=== PATIENT | female | born 1950 | race Caucasian/White ===

== ENCOUNTER 2020-06-10 17:17 | Inpatient (IN) | payer MEDICARE, OTHER ==
[~2020-06-10] VITALS: Ht 152.4 cm; Wt 93.7 kg
[2020-06-10 18:16] LABS: BASOPHIL 0 % (0-2); EOSINOPHIL 0 % (0-7); HCT 18.8 % (37.0-47.0); LYMPHOCYTE 54.8 % (15-48); MCH 33.9 pg (25.0-31.0); MCHC 31.9 g/dL (32.0-36.0); MCV 106.2 fL (78.0-100.0); MONOCYTE 4.3 % (0-12); MPV 9.4 fL (6.0-9.5); NEUTROPHIL 39.8 % (41-80); NRBC 374.2; RBC 1.77 M/uL (4.20-5.40)
[2020-06-10 18:33] LABS: ALBUMIN 2.6 g/dL (3.4-5.0); BILIRUBIN - TOTAL 2.8 mg/dL (0.2-1.0); BUN/CREAT RATIO (CALC) 24.1 RATIO; CREATININE 1.12 mg/dL (0.51-0.95); GLOBULIN (CALCULATION) 4.3 g/dL; POTASSIUM 4.4 mmol/L (3.5-5.1); TOTAL PROTEIN 6.9 g/dL (6.4-8.2)
[2020-06-10 18:38] LABS: WBC 0.9 K/uL (4.0-10.5)
[2020-06-10 18:40] LABS: LACTIC ACID 4.9 mmol/L (0.4-1.9)
[2020-06-10 18:43] LABS: PLT 34 K/uL (150-400)
[2020-06-10 18:53] LABS: RETICULOCYTE COUNT 2.2 % (1.0-2.0)
[2020-06-10 18:56] LABS: IRON % SATURATION 67.5 %SAT (20-50)
[2020-06-10 18:56] LABS: BILIRUBIN 3+ mg/dL (NEGATIVE); BLOOD TRACE-INTACT Ery/uL (NEGATIVE); CLARITY CLEAR (CLEAR); COLOR YELLOW (YELLOW); GLUCOSE (U) TRACE mg/dL (NORMAL); LEUKOCYTES TRACE Leu/uL (NEGATIVE); NITRITE POSITIVE (NEGATIVE); PROTEIN 1+ mg/dL (NEGATIVE); SPECIFIC GRAVITY >=1.030 (1.001-1.030); UROBILINOGEN >=8.0 mg/dL (0.2-1.0); pH 5.5 (5.0-9.0)
[2020-06-10 19:02] LABS: CORONAVIRUS 2019 SARS-COV-2 NEGATIVE (NEGATIVE); INFLUENZA A NAA NEGATIVE (NEGATIVE)
[2020-06-10 19:05] LABS: AMORPHOUS URATES CRYSTALS TRACE; BACTERIA 2+; MUCOUS MODERATE
[2020-06-10 22:17] LABS: INR 1.29 (0.9-1.2); PROTHROMBIN TIME 15.3 SECONDS (11.4-13.6)
[2020-06-10 22:18] LABS: PTT 33.7 SECONDS (22.2-34.7)
[2020-06-11] MEDS ORDERED: ZESTRIL2.5 MG PO (04:44)
[2020-06-11] MEDS ORDERED: BUPROPION XL300 MG PO (04:45)
[2020-06-11 08:32] LABS: BASOPHIL 1.4 % (0-2); EOSINOPHIL 0 % (0-7); HCT 23.9 % (37.0-47.0); MCH 32.8 pg (25.0-31.0); MCHC 34.7 g/dL (32.0-36.0); MCV 94.5 fL (78.0-100.0); MONOCYTE 7.2 % (0-12); NEUTROPHIL 20.2 % (41-80); NRBC 67.6; RBC 2.53 M/uL (4.20-5.40); RDW 19.9 % (11.5-14.0)
[2020-06-11 08:44] LABS: HGB 8.3 g/dl (12.5-16.0); PLT 23 K/uL (150-400); WBC 1.4 K/uL (4.0-10.5)
[2020-06-11 08:45] LABS: MPV 12.3 fL (6.0-9.5)
[2020-06-11 08:56] LABS: IRON % SATURATION 94.4 %SAT (20-50)
[2020-06-11 09:05] LABS: BLAST 10; ELLIPTOCYTES (OVALOCYTES) 2+; LYMPHOCYTE(M) 80 % (15-48); NEUTROPHILS(M) 10 % (41-80); TOTAL CELL COUNT 10
[2020-06-11 09:06] LABS: ECHINOCYTES (BURR CELLS) 2+
[2020-06-11 09:07] LABS: ANISOCYTOSIS MODERATE; DACRYOCYTES (TEAR DROP CELLS) 2+; PLATELET ESTIMATE DECREASED; POIKILOCYTOSIS MODERATE
[2020-06-11 09:09] LABS: PLATELET MORPHOLOGY NORMAL
[2020-06-11 09:19] LABS: ALBUMIN 2.3 g/dL (3.4-5.0); BUN/CREAT RATIO (CALC) 24.2 RATIO; CREATININE 0.95 mg/dL (0.51-0.95); FOLIC ACID (SERUM) 6.6 ng/mL (8.6-58.9); FT4 (FREE T4) 1.2 ng/dL (0.76-1.46); GLOBULIN (CALCULATION) 3.6 g/dL; MAGNESIUM 2.1 mg/dL (1.8-2.4); PHOSPHORUS 3.2 mg/dL (2.6-4.7); POTASSIUM 3.6 mmol/L (3.5-5.1); TOTAL PROTEIN 5.9 g/dL (6.4-8.2)
[2020-06-12 06:10] LABS: INR 1.32 (0.9-1.2); PROTHROMBIN TIME 15.6 SECONDS (11.4-13.6); PTT 37.6 SECONDS (22.2-34.7)
[2020-06-12 06:19] LABS: CREATININE 0.75 mg/dL (0.51-0.95); POTASSIUM 3.4 mmol/L (3.5-5.1)
[2020-06-12 06:20] LABS: BASOPHIL 0 % (0-2); EOSINOPHIL 0 % (0-7); HCT 21.9 % (37.0-47.0); HGB 7.3 g/dl (12.5-16.0); LYMPHOCYTE 81.1 % (15-48); MCH 31.7 pg (25.0-31.0); MCHC 33.3 g/dL (32.0-36.0); MCV 95.2 fL (78.0-100.0); MONOCYTE 5.6 % (0-12); NEUTROPHIL 12.2 % (41-80); RDW 19.9 % (11.5-14.0)
[2020-06-12 07:42] LABS: PLT 15 K/uL (150-400); WBC 0.9 K/uL (4.0-10.5)
[2020-06-12 07:55] LABS: LYMPHOCYTE(M) 85 % (15-48); NEUTROPHILS(M) 15 % (41-80); NRBC 60; TOTAL CELL COUNT 20
[2020-06-12 07:56] LABS: PLATELET ESTIMATE DECREASED
[2020-06-12 07:59] LABS: ANISOCYTOSIS SLIGHT; PLATELET MORPHOLOGY NORMAL
[2020-06-12 08:00] LABS: DACRYOCYTES (TEAR DROP CELLS) 1+; ELLIPTOCYTES (OVALOCYTES) 1+; POIKILOCYTOSIS MODERATE
[2020-06-12 08:01] LABS: ACANTHOCYTES (THORN CELLS) RARE
[2020-06-13 06:13] LABS: BASOPHIL 0 % (0-2); EOSINOPHIL 0 % (0-7); HCT 20.8 % (37.0-47.0); HGB 7.2 g/dl (12.5-16.0); LYMPHOCYTE 85.2 % (15-48); MCH 32.7 pg (25.0-31.0); MCHC 34.6 g/dL (32.0-36.0); MCV 94.5 fL (78.0-100.0); MONOCYTE 3.7 % (0-12); NEUTROPHIL 9.9 % (41-80); NRBC 59.3; RDW 19.5 % (11.5-14.0)
[2020-06-13 06:31] LABS: INR 1.19 (0.9-1.2); PROTHROMBIN TIME 14.3 SECONDS (11.4-13.6)
[2020-06-13 06:37] LABS: PLT 12 K/uL (150-400); WBC 0.8 K/uL (4.0-10.5)
[2020-06-13 07:58] LABS: ALBUMIN 2.2 g/dL (3.4-5.0); CREATININE 0.8 mg/dL (0.51-0.95); GLOBULIN (CALCULATION) 3.2 g/dL; POTASSIUM 3.1 mmol/L (3.5-5.1); TOTAL PROTEIN 5.4 g/dL (6.4-8.2)
[2020-06-14 06:42] LABS: BASOPHIL 0 % (0-2); EOSINOPHIL 0 % (0-7); HGB 8.4 g/dl (12.5-16.0); MCH 31.7 pg (25.0-31.0); MCHC 33.6 g/dL (32.0-36.0); MCV 94.3 fL (78.0-100.0); MONOCYTE 3.4 % (0-12); NEUTROPHIL 14.6 % (41-80); RBC 2.65 M/uL (4.20-5.40); RDW 18.1 % (11.5-14.0)
[2020-06-14 07:20] LABS: PLT 11 K/uL (150-400); WBC 0.6 K/uL (4.0-10.5)
[2020-06-15 06:25] LABS: BASOPHIL 0 % (0-2); EOSINOPHIL 0 % (0-7); HCT 23.9 % (37.0-47.0); HGB 8.1 g/dl (12.5-16.0); LYMPHOCYTE 87.2 % (15-48); MCH 31.8 pg (25.0-31.0); MCHC 33.9 g/dL (32.0-36.0); MCV 93.7 fL (78.0-100.0); MONOCYTE 2.6 % (0-12); NEUTROPHIL 10.2 % (41-80); NRBC 28.2; RBC 2.55 M/uL (4.20-5.40); RDW 17.8 % (11.5-14.0)
[2020-06-15 07:03] LABS: BUN/CREAT RATIO (CALC) 10.1 RATIO; CREATININE 0.79 mg/dL (0.51-0.95); POTASSIUM 3.5 mmol/L (3.5-5.1)
[2020-06-15 07:44] LABS: PLT 9 K/uL (150-400); WBC 0.8 K/uL (4.0-10.5)
[2020-06-15] MEDS ORDERED: LEVAQUIN500 MG PO ×2 (08:24→10:44)
[2020-06-15] MEDS ORDERED: DIFLUCAN 100MG100 MG PO ×2 (08:24→10:44)
[2020-07-04] MEDS ORDERED: ZYRTEC10 MG PO (10:28)
[2020-07-04] MEDS ORDERED: ALLOPURINOL300 MG PO (10:29)
[2020-07-07] MEDS ORDERED: ACETAMINOPHEN500 M1 PO (14:52)
== END 2020-06-15 16:05 | disposition home or self-care (01) | DRG 871 ==
LOC: FER 17:17 → FMS 22:17 → FICU 22:17 → FMS 06-12 09:11
PROVIDERS: Allergy & Immunology Allergy; Emergency Medicine; Nurse Practitioner; ADMIT Internal Medicine
PROC: 3E033XZ Introduction of Vasopressor into Peripheral Vein, Percutaneous Approach (ICD-10-PCS; principal; 2020-06-10)
DX: A41.9 Sepsis, unspecified organism (principal); R65.21 Severe sepsis with septic shock; J18.9 Pneumonia, unspecified organism; D61.818 Other pancytopenia; N39.0 Urinary tract infection, site not specified; Z20.822 Contact with and (suspected) exposure to COVID-19; F41.9 Anxiety disorder, unspecified; F32.9 Major depressive disorder, single episode, unspecified; I10 Essential (primary) hypertension; Z88.2 Allergy status to sulfonamides
CPT/HCPCS: 36415; 36430; 70450; 71275; 80048; 80053; 80202; 81001; 82150; 82550; 82607; 82728; 82746; 83540; 83550; 83605; 83615; 83735; 83874; 83880; 84100; 84145; 84439; 84443; 84484; 85025; 85384; 85610; 85730; 86850; 86900; 86901; 86922; 87040; 87088; 88305; 88341; 88342; 93005; 94010; 97110; 97116; 97162; 97166; 97530; 97530-GP; 97535; C9113; J0692; J1940; J1956; J2543; J2704; J3370; J7030; J7050; J7120; P9016; P9612; Q9967; U0002

== ENCOUNTER → 2020-07-07 | Day surgery (SDC) | payer MEDICARE, SELFPAY ==
[~2020-07-07] VITALS: Ht 152.4 cm; Wt 86.2 kg
[~2020-07-07] MED LIST: ACETAMINOPHEN500 M1 PO; ALLOPURINOL300 MG PO; BENADRYL12.5 MG/5 PO; BUPROPION XL300 MG PO; CEFDINIR300 MG PO; CLONAZEPAM0.5 MG PO; COMPAZINE10 MG PO; DIFLUCAN 100MG100 MG PO; DIFLUCAN150 MG PO; INVANZ 1GM1 GM/VIAL IM/IV; LEVAQUIN500 MG PO; LOMOTIL1 EACH PO; MEGACE40 MG PO; METRONIDAZOLE500 MG PO; MIRALAX17 GM PO; NORCO 5-325 TA1 EACH PO; NYSTATIN SUSP1 ML/ML PO; PREDNISOLO15 MG/5 ML PO; VENCLEXTA10 MG PO; ZESTRIL2.5 MG PO; ZYRTEC10 MG PO
[2020-07-07 10:02] LABS: HCT 29.4 % (37.0-47.0); MCH 32.1 pg (25.0-31.0); MCHC 34.4 g/dL (32.0-36.0); MCV 93.3 fL (78.0-100.0); MPV 9.8 fL (6.0-9.5); RBC 3.15 M/uL (4.20-5.40); RDW 16.6 % (11.5-14.0)
[2020-07-07 10:42] LABS: HGB 10.1 g/dl (12.5-16.0); WBC 0.8 K/uL (4.0-10.5)
== END | disposition home or self-care (01) ==
LOC: FAS 08:42
PROVIDERS: Student in an Organized Health Care Education/Training Program
DX: D46.9 Myelodysplastic syndrome, unspecified (principal); D61.818 Other pancytopenia; Z79.899 Other long term (current) drug therapy; Z88.2 Allergy status to sulfonamides
CPT/HCPCS: 36415; 71045; 76000; 86850; 86900; 86901; C1788; J0690; J1644; J2250; J2704; J7120

== ENCOUNTER 2020-08-13 17:37 | Inpatient (IN) | payer MEDICARE, SELFPAY, OTHER ==
[~2020-08-13 17:37] MED LIST changes: -BENADRYL12.5 MG/5 PO; -CEFDINIR300 MG PO; -CLONAZEPAM0.5 MG PO; -COMPAZINE10 MG PO; -DIFLUCAN150 MG PO; -INVANZ 1GM1 GM/VIAL IM/IV; -LOMOTIL1 EACH PO; -MEGACE40 MG PO; -METRONIDAZOLE500 MG PO; -MIRALAX17 GM PO; -NORCO 5-325 TA1 EACH PO; -NYSTATIN SUSP1 ML/ML PO; -PREDNISOLO15 MG/5 ML PO; -VENCLEXTA10 MG PO
[2020-08-13 19:01] LABS: BASOPHIL 0 % (0-2); EOSINOPHIL 0 % (0-7); HCT 14.6 % (37.0-47.0); LYMPHOCYTE 85.7 % (15-48); MCH 29.7 pg (25.0-31.0); MCHC 33.6 g/dL (32.0-36.0); MCV 88.5 fL (78.0-100.0); MONOCYTE 5.4 % (0-12); NRBC 3.6; RBC 1.65 M/uL (4.20-5.40); RDW 14.5 % (11.5-14.0)
[2020-08-13 19:16] LABS: ALBUMIN 2.3 g/dL (3.4-5.0); BILIRUBIN - TOTAL 4.1 mg/dL (0.2-1.0); BUN/CREAT RATIO (CALC) 45.8 RATIO; CREATININE 1.07 mg/dL (0.51-0.95); GLOBULIN (CALCULATION) 4.8 g/dL; POTASSIUM 3.5 mmol/L (3.5-5.1); TOTAL PROTEIN 7.1 g/dL (6.4-8.2)
[2020-08-13 19:27] LABS: WBC 0.6 K/uL (4.0-10.5)
[2020-08-13 19:28] LABS: HGB 4.9 g/dl (12.5-16.0); NEUTROPHIL 8.9 % (41-80); PLT 5 K/uL (150-400)
[2020-08-13 19:36] LABS: LACTIC ACID 3.4 mmol/L (0.4-1.9)
[2020-08-13 19:41] LABS: INR 1.47 (0.9-1.2); PROTHROMBIN TIME 16.9 SECONDS (11.4-13.6); PTT 49.5 SECONDS (22.2-34.7)
[2020-08-13 20:58] LABS: BILIRUBIN 2+ mg/dL (NEGATIVE); BLOOD 2+ Ery/uL (NEGATIVE); GLUCOSE (U) NORMAL (NORMAL); LEUKOCYTES TRACE Leu/uL (NEGATIVE); NITRITE POSITIVE (NEGATIVE); PROTEIN 1+ mg/dL (NEGATIVE); UROBILINOGEN >=8.0 mg/dL (0.2-1.0)
[2020-08-13 21:01] LABS: CLARITY CLOUDY (CLEAR); COLOR AMBER (YELLOW)
[2020-08-13 21:09] LABS: URINARY WBC 20-50
[2020-08-13 21:10] LABS: AMORPHOUS URATES CRYSTALS LARGE; BACTERIA 4+; SQUAMOUS EPITHELIAL CELLS RARE
[2020-08-14 06:45] LABS: LACTIC ACID 1.2 mmol/L (0.4-1.9)
[2020-08-14] MEDS ORDERED: COMPAZINE10 MG PO (11:21)
[2020-08-14] MEDS ORDERED: VENCLEXTA10 MG PO (11:22)
[2020-08-14] MEDS ORDERED: ALLOPURINOL300 MG PO (11:23)
--- NOTE | 2020-08-14 11:51 | NUR ---
08/14/20 Ms. Hall lives alone. She has a son and daughter; both live out of town. Ms. Hall has a rw. She believes she is current with a [employer], although she is uncertain of the company name.
[2020-08-14] MEDS ORDERED: LOMOTIL1 EACH PO (13:14)
[2020-08-14] MEDS ORDERED: BENADRYL12.5 MG/5 PO (13:18)
[2020-08-14] MEDS ORDERED: PREDNISOLO15 MG/5 ML PO (13:20)
[2020-08-14 14:14] LABS: BASOPHIL 1.6 % (0-2); EOSINOPHIL 0 % (0-7); HCT 22.3 % (37.0-47.0); LYMPHOCYTE 91.9 % (15-48); MCH 30.9 pg (25.0-31.0); MCHC 35.9 g/dL (32.0-36.0); MCV 86.1 fL (78.0-100.0); MONOCYTE 3.2 % (0-12); MPV 10.9 fL (6.0-9.5); NEUTROPHIL 1.7 % (41-80); NRBC 0; PLT 50 K/uL (150-400); RBC 2.59 M/uL (4.20-5.40); RDW 13.9 % (11.5-14.0)
[2020-08-14 14:16] LABS: WBC 0.6 K/uL (4.0-10.5)
--- NOTE | 2020-08-14 14:48 | NUR ---
COVID SWABBED AT 1428, WAS NOT DONE IN THE ED
[2020-08-15 05:31] LABS: BASOPHIL 1.1 % (0-2); EOSINOPHIL 0 % (0-7); HCT 21.8 % (37.0-47.0); HGB 7.6 g/dl (12.5-16.0); LYMPHOCYTE 91.6 % (15-48); MCH 30.3 pg (25.0-31.0); MCHC 34.9 g/dL (32.0-36.0); MCV 86.9 fL (78.0-100.0); MONOCYTE 3.2 % (0-12); MPV 9.4 fL (6.0-9.5); NRBC 0; RBC 2.51 M/uL (4.20-5.40); RDW 14.2 % (11.5-14.0)
[2020-08-15 05:34] LABS: PLT 34 K/uL (150-400)
[2020-08-15 05:53] LABS: CREATININE 0.65 mg/dL (0.51-0.95); POTASSIUM 3.2 mmol/L (3.5-5.1)
[2020-08-16 06:40] LABS: BASOPHIL 1.2 % (0-2); EOSINOPHIL 1.2 % (0-7); HCT 20.4 % (37.0-47.0); HGB 7.2 g/dl (12.5-16.0); LYMPHOCYTE 89.4 % (15-48); MCH 30.6 pg (25.0-31.0); MCHC 35.3 g/dL (32.0-36.0); MCV 86.8 fL (78.0-100.0); MONOCYTE 4.7 % (0-12); MPV 10.5 fL (6.0-9.5); NEUTROPHIL 2.3 % (41-80); NRBC 0; RBC 2.35 M/uL (4.20-5.40); RDW 14.2 % (11.5-14.0)
[2020-08-16 07:18] LABS: WBC 0.9 K/uL (4.0-10.5)
[2020-08-16 07:19] LABS: PLT 23 K/uL (150-400)
[2020-08-16 07:32] LABS: BUN/CREAT RATIO (CALC) 19.6 RATIO; CREATININE 0.56 mg/dL (0.51-0.95)
[2020-08-17 07:59] LABS: EOSINOPHIL 0 % (0-7); HCT 20.1 % (37.0-47.0); LYMPHOCYTE 89.7 % (15-48); MCH 30.7 pg (25.0-31.0); MCHC 34.8 g/dL (32.0-36.0); MCV 88.2 fL (78.0-100.0); MONOCYTE 3.1 % (0-12); MPV 9.5 fL (6.0-9.5); NEUTROPHIL 4.1 % (41-80); NRBC 0; RBC 2.28 M/uL (4.20-5.40); RDW 14.4 % (11.5-14.0)
[2020-08-17 08:10] LABS: CREATININE 0.57 mg/dL (0.51-0.95); POTASSIUM 3.2 mmol/L (3.5-5.1)
[2020-08-17 08:46] LABS: PLT 15 K/uL (150-400)
[2020-08-18 09:24] LABS: BASOPHIL 1.3 % (0-2); EOSINOPHIL 1.3 % (0-7); HCT 20.6 % (37.0-47.0); HGB 6.9 g/dl (12.5-16.0); LYMPHOCYTE 88.8 % (15-48); MCH 30.4 pg (25.0-31.0); MCHC 33.5 g/dL (32.0-36.0); MCV 90.7 fL (78.0-100.0); MONOCYTE 3.8 % (0-12); MPV 13.6 fL (6.0-9.5); NEUTROPHIL 3.5 % (41-80); NRBC 0; RBC 2.27 M/uL (4.20-5.40); RDW 14.7 % (11.5-14.0)
[2020-08-18 09:27] LABS: BUN/CREAT RATIO (CALC) 14.5 RATIO; CREATININE 0.55 mg/dL (0.51-0.95); MAGNESIUM 1.6 mg/dL (1.8-2.4); POTASSIUM 4.1 mmol/L (3.5-5.1)
[2020-08-18 09:34] LABS: PLT 10 K/uL (150-400); WBC 0.8 K/uL (4.0-10.5)
[2020-08-19 04:53] LABS: BASOPHIL 0.9 % (0-2); EOSINOPHIL 1.9 % (0-7); HCT 21.8 % (37.0-47.0); HGB 7.4 g/dl (12.5-16.0); LYMPHOCYTE 88.8 % (15-48); MCH 30.2 pg (25.0-31.0); MCHC 33.9 g/dL (32.0-36.0); MONOCYTE 3.7 % (0-12); MPV 9.9 fL (6.0-9.5); NEUTROPHIL 3.8 % (41-80); NRBC 0; RBC 2.45 M/uL (4.20-5.40); RDW 14.5 % (11.5-14.0)
[2020-08-19 04:56] LABS: PLT 31 K/uL (150-400); WBC 1.1 K/uL (4.0-10.5)
[2020-08-19 05:09] LABS: BUN/CREAT RATIO (CALC) 12.5 RATIO; CREATININE 0.64 mg/dL (0.51-0.95); POTASSIUM 4.2 mmol/L (3.5-5.1)
[2020-08-19] MEDS ORDERED: METRONIDAZOLE500 MG PO (09:22)
[2020-08-19] MEDS ORDERED: CEFDINIR300 MG PO (09:22)
[2020-08-19] MEDS ORDERED: MIRALAX17 GM PO (09:28)
--- NOTE | 2020-08-19 11:21 | NUR ---
08/19/20 [facility] was notified of today's discharge. A request was received to prvide a cab voucher. Ms. Hall reports to be able to afford the cab fare. [facility] was requested to transport home. - Report given to MS ARLENE Kraus
== END 2020-08-19 11:50 | disposition home or self-care (01) | DRG 809 ==
LOC: FER 17:37 → FTCU 08-14 05:45 → FICU 08-14 05:45 → FMS 08-14 05:45 → FICU 08-14 05:46 → FTCU 08-15 07:47 → FMS 08-15 08:54
PROVIDERS: Emergency Medicine; Internal Medicine; Student in an Organized Health Care Education/Training Program; ADMIT Allergy & Immunology Allergy
PROC: 30233R1 Transfusion of Nonautologous Platelets into Peripheral Vein, Percutaneous Approach (ICD-10-PCS; principal; 2020-08-13)
PROC: 30233R1 Transfusion of Nonautologous Platelets into Peripheral Vein, Percutaneous Approach (ICD-10-PCS; 2020-08-14)
PROC: 30233N1 Transfusion of Nonautologous Red Blood Cells into Peripheral Vein, Percutaneous Approach (ICD-10-PCS; 2020-08-14)
PROC: 8E0ZXY6 Isolation (ICD-10-PCS; 2020-08-14)
PROC: 30233R1 Transfusion of Nonautologous Platelets into Peripheral Vein, Percutaneous Approach (ICD-10-PCS; 2020-08-18)
PROC: 30233N1 Transfusion of Nonautologous Red Blood Cells into Peripheral Vein, Percutaneous Approach (ICD-10-PCS; 2020-08-18)
DX: D70.3 Neutropenia due to infection (principal); N39.0 Urinary tract infection, site not specified; R78.81 Bacteremia; K57.32 Diverticulitis of large intestine without perforation or abscess without bleeding; R50.81 Fever presenting with conditions classified elsewhere; D61.818 Other pancytopenia; D46.9 Myelodysplastic syndrome, unspecified; B96.20 Unspecified Escherichia coli [E. coli] as the cause of diseases classified elsewhere; I10 Essential (primary) hypertension; F41.9 Anxiety disorder, unspecified; F32.9 Major depressive disorder, single episode, unspecified; K59.00 Constipation, unspecified; Z98.890 Other specified postprocedural states; Z85.828 Personal history of other malignant neoplasm of skin; Z79.52 Long term (current) use of systemic steroids; Z79.899 Other long term (current) drug therapy
CPT/HCPCS: 36415; 36430; 80048; 80053; 81001; 83605; 83735; 84145; 85025; 85610; 85730; 86850; 86900; 86901; 86922; 87040; 87076; 87077; 87088; 87186; 93971; 96365; J0692; J1447; J2543; J7030; J7050; P9016; P9035; Q0164; U0002

== ENCOUNTER 2020-09-05 19:36 | Inpatient (IN) | payer MEDICARE, OTHER ==
[~2020-09-05] VITALS: Ht 152.4 cm; Wt 80.3 kg
[~2020-09-05 19:36] MED LIST changes: +BENADRYL12.5 MG/5 PO; +CEFDINIR300 MG PO; +COMPAZINE10 MG PO; +LOMOTIL1 EACH PO; +METRONIDAZOLE500 MG PO; +MIRALAX17 GM PO; +PREDNISOLO15 MG/5 ML PO; +VENCLEXTA10 MG PO
[2020-09-05 20:08] LABS: BASOPHIL 1.6 % (0-2); EOSINOPHIL 0 % (0-7); HCT 22.2 % (37.0-47.0); HGB 7.5 g/dl (12.5-16.0); LYMPHOCYTE 87.3 % (15-48); MCHC 33.8 g/dL (32.0-36.0); MCV 85.7 fL (78.0-100.0); MONOCYTE 4.8 % (0-12); NEUTROPHIL 3.1 % (41-80); RBC 2.59 M/uL (4.20-5.40); RDW 13.3 % (11.5-14.0)
[2020-09-05 20:13] LABS: PLT 6 K/uL (150-400); WBC 0.6 K/uL (4.0-10.5)
[2020-09-05 20:26] LABS: LACTIC ACID 3.6 mmol/L (0.4-1.9)
[2020-09-05 20:32] LABS: BUN/CREAT RATIO (CALC) 32.4 RATIO; CREATININE 0.68 mg/dL (0.51-0.95); GLOBULIN (CALCULATION) 5.5 g/dL; POTASSIUM 3.3 mmol/L (3.5-5.1); TOTAL PROTEIN 7.5 g/dL (6.4-8.2)
[2020-09-05 20:34] LABS: LYMPHOCYTE(M) 92 % (15-48); MONOCYTE(M) 4 % (0-12); VARIANT LYMPHOCYTE 4
[2020-09-05 20:35] LABS: ANISOCYTOSIS MODERATE; POIKILOCYTOSIS SLIGHT
[2020-09-05 20:36] LABS: DACRYOCYTES (TEAR DROP CELLS) RARE; ROULEAUX PRESENT; SCHISTOCYTES RARE
[2020-09-05 20:37] LABS: PLATELETS ON SMEAR DECREASED
[2020-09-05 23:21] LABS: CORONAVIRUS 2019 SARS-COV-2 NEGATIVE (NEGATIVE); INFLUENZA A NAA NEGATIVE (NEGATIVE)
--- NOTE | 2020-09-06 00:31 | NUR ---
PATIENT ARRIVED TO FLOOR VIA STRECHER FROM ER. ALERT AND ORIENTED AT THIS TIME, NO C/O PAIN. ABLE TO VOICE CONCERNS BED IN LOW POSITION, CALL LIGHT IN REACH, BED ALERT ON.
[2020-09-06 01:26] LABS: BILIRUBIN 2+ mg/dL (NEGATIVE); BLOOD 3+ Ery/uL (NEGATIVE); CLARITY HAZY (CLEAR); COLOR RED (YELLOW); GLUCOSE (U) TRACE mg/dL (NORMAL); LEUKOCYTES NEGATIVE Leu/uL (NEGATIVE); NITRITE POSITIVE (NEGATIVE); PROTEIN 2+ mg/dL (NEGATIVE); SPECIFIC GRAVITY <=1.005 (1.001-1.030); UROBILINOGEN >=8.0 mg/dL (0.2-1.0); pH 6.5 (5.0-9.0)
[2020-09-06 01:27] LABS: MAGNESIUM 1.8 mg/dL (1.8-2.4); PHOSPHORUS 2.2 mg/dL (2.6-4.7)
[2020-09-06 01:31] LABS: BACTERIA 1+; SQUAMOUS EPITHELIAL CELLS RARE; URINARY RBC TNTC; URINARY WBC RARE
[2020-09-06 01:32] LABS: TRANSITIONAL EPITHELIAL CELLS RARE
[2020-09-06 05:40] LABS: ALBUMIN 1.9 g/dL (3.4-5.0); BILIRUBIN - TOTAL 1.9 mg/dL (0.2-1.0); BUN/CREAT RATIO (CALC) 31.6 RATIO; CREATININE 0.76 mg/dL (0.51-0.95); GLOBULIN (CALCULATION) 4.6 g/dL; POTASSIUM 2.5 mmol/L (3.5-5.1); TOTAL PROTEIN 6.5 g/dL (6.4-8.2)
--- NOTE | 2020-09-06 05:52 | NUR ---
INFORMATION TECHNOLOGY ARCHITECT NOTIFIED OF BURST OF SINUS TACH NO ORDERS AT THIS TIME.
--- NOTE | 2020-09-06 20:09 | NUR ---
1030 PATIENT UP TO BEDSIDE COMMODE, BECAME VERY WEAK, TOO5 5 PEOPLE TO RETURN TO BED. HR 64 RESP 18. SEE VITAL SIGNS
[2020-09-07 05:42] LABS: BASOPHIL 0 % (0-2); EOSINOPHIL 0 % (0-7); HCT 24.9 % (37.0-47.0); HGB 8.7 g/dl (12.5-16.0); LYMPHOCYTE 89.6 % (15-48); MCH 29.4 pg (25.0-31.0); MCHC 34.9 g/dL (32.0-36.0); MCV 84.1 fL (78.0-100.0); MONOCYTE 1.5 % (0-12); MPV 9.4 fL (6.0-9.5); NEUTROPHIL 7.4 % (41-80); NRBC 0; RBC 2.96 M/uL (4.20-5.40); RDW 13.1 % (11.5-14.0)
[2020-09-07 05:55] LABS: ALBUMIN 1.6 g/dL (3.4-5.0); BILIRUBIN - TOTAL 1.7 mg/dL (0.2-1.0); BUN/CREAT RATIO (CALC) 30.4 RATIO; CREATININE 0.56 mg/dL (0.51-0.95); GLOBULIN (CALCULATION) 4.2 g/dL; POTASSIUM 2.8 mmol/L (3.5-5.1); TOTAL PROTEIN 5.8 g/dL (6.4-8.2)
[2020-09-07 06:09] LABS: WBC 0.7 K/uL (4.0-10.5)
[2020-09-07 06:10] LABS: PLT 28 K/uL (150-400)
--- NOTE | 2020-09-07 14:12 | NUR ---
RD spoke with MD Watson re: patient's current diet of clear liquids and limiations of this diet order. Will add ONS appropriate for diet, and monitor diet advancement and POC re: nutrition support.
--- NOTE | 2020-09-07 16:18 | NUR ---
09/07/20 Ms. Hall lives alone. She has 2 sons, both live out of town. She has a rw, 3in1, s. chair, hand held shower, and bars in the bathroom. [facility] will not accept patient because they have been trying to meet with her for several weeks. Pt has informed [facility] of multiple reasons why they could not visit. [facility] agreed to accept patient. [facility] is working on arranging IV antibiotics.
[2020-09-08 05:35] LABS: BASOPHIL 0 % (0-2); EOSINOPHIL 0 % (0-7); HCT 24.1 % (37.0-47.0); HGB 8.4 g/dl (12.5-16.0); LYMPHOCYTE 91.1 % (15-48); MCH 29.6 pg (25.0-31.0); MCHC 34.9 g/dL (32.0-36.0); MCV 84.9 fL (78.0-100.0); MONOCYTE 3.6 % (0-12); NEUTROPHIL 5.3 % (41-80); NRBC 0; RBC 2.84 M/uL (4.20-5.40); RDW 13.5 % (11.5-14.0)
[2020-09-08 06:01] LABS: ALBUMIN 1.5 g/dL (3.4-5.0); CREATININE 0.5 mg/dL (0.51-0.95); GLOBULIN (CALCULATION) 4.6 g/dL; POTASSIUM 3.2 mmol/L (3.5-5.1); TOTAL PROTEIN 6.1 g/dL (6.4-8.2)
[2020-09-08 06:44] LABS: WBC 0.6 K/uL (4.0-10.5)
[2020-09-08 06:45] LABS: PLT 22 K/uL (150-400)
[2020-09-08] MEDS ORDERED: DIFLUCAN150 MG PO (09:40)
[2020-09-08] MEDS ORDERED: MEGACE40 MG PO (09:40)
--- NOTE | 2020-09-08 14:24 | NUR ---
09/08/[address] for IV infusion through [facility]. Ms. 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 Caregivers could not be arranged. - Ms. Hall has chosen SNF placement for IV antibiotics. Referrals have been made to [facility], [facility], and [facility].
--- NOTE | 2020-09-08 21:07 | NUR ---
RN INITITIATED A PURE WICK FOR THIS PT
[2020-09-10 04:27] LABS: BASOPHIL 0 % (0-2); EOSINOPHIL 0 % (0-7); HCT 23.3 % (37.0-47.0); HGB 8.2 g/dl (12.5-16.0); LYMPHOCYTE 90.6 % (15-48); MCH 29.5 pg (25.0-31.0); MCHC 35.2 g/dL (32.0-36.0); MCV 83.8 fL (78.0-100.0); MONOCYTE 3.1 % (0-12); MPV 8.1 fL (6.0-9.5); NEUTROPHIL 6.3 % (41-80); NRBC 0; RBC 2.78 M/uL (4.20-5.40); RDW 13.3 % (11.5-14.0)
[2020-09-10 04:29] LABS: WBC 0.6 K/uL (4.0-10.5)
[2020-09-10 04:30] LABS: PLT 10 K/uL (150-400)
[2020-09-10 04:39] LABS: ALBUMIN 1.5 g/dL (3.4-5.0); CREATININE 0.4 mg/dL (0.51-0.95); MAGNESIUM 1.7 mg/dL (1.8-2.4); PHOSPHORUS 1.9 mg/dL (2.6-4.7); POTASSIUM 2.9 mmol/L (3.5-5.1)
--- NOTE | 2020-09-11 11:58 | NUR ---
09/11/20 [facility] has accepted Karlie Rafael pending insurance approval.
--- NOTE | 2020-09-11 17:36 | NUR ---
I WAS ASKED TO SPEAK TO MS. MOON BY CONTROL AREA OPERATOR, LUCY SOTO. I ADVISED MS. MOON AND HER SON, MEGHAN, THAT I WOULD BE FOLLOWING HER CASE. PT WAS IN AGREEMENT. ADVISED MS. GARDNER THAT IT WAS MY UNDERSTANDING THAT [facility] WOULD ACCEPT HER FOR PLACEMENT SOON THE INSURANCE AUTHORIZES HER PLACEMENT.
--- NOTE | 2020-09-11 22:26 | NUR ---
PT TRANSFERED TO MS ROOM 203. PT STABLE, NO S/S DISTRESS NOTED, PT WASNT TOO HAPPY ABOUT BEING MOVED. REPORT CALLED TO MOLLY
[2020-09-12 04:59] LABS: BASOPHIL 0 % (0-2); EOSINOPHIL 0 % (0-7); HCT 22.8 % (37.0-47.0); HGB 7.9 g/dl (12.5-16.0); MCH 29.2 pg (25.0-31.0); MCHC 34.6 g/dL (32.0-36.0); MCV 84.1 fL (78.0-100.0); MONOCYTE 4.3 % (0-12); MPV 9.8 fL (6.0-9.5); NEUTROPHIL 5.7 % (41-80); NRBC 0; PLT 36 K/uL (150-400); RBC 2.71 M/uL (4.20-5.40); RDW 13.6 % (11.5-14.0)
[2020-09-12 05:01] LABS: WBC 0.7 K/uL (4.0-10.5)
[2020-09-12 05:17] LABS: BUN/CREAT RATIO (CALC) 15.4 RATIO; CREATININE 0.39 mg/dL (0.51-0.95); POTASSIUM 3.2 mmol/L (3.5-5.1)
[2020-09-12 11:11] LABS: BILIRUBIN 2+ mg/dL (NEGATIVE); BLOOD 2+ Ery/uL (NEGATIVE); CLARITY HAZY (CLEAR); COLOR ORANGE (YELLOW); GLUCOSE (U) NORMAL (NORMAL); LEUKOCYTES NEGATIVE Leu/uL (NEGATIVE); NITRITE POSITIVE (NEGATIVE); PROTEIN 3+ mg/dL (NEGATIVE); SPECIFIC GRAVITY 1.025 (1.001-1.030); pH 6.5 (5.0-9.0)
[2020-09-12 11:19] LABS: BACTERIA TRACE; URINARY RBC TNTC
--- NOTE | 2020-09-12 13:32 | NUR ---
MET WITH PT. ADVISED THAT WE HAVE NOT HEARD FROM THE INSURANCE COMPANY OF YET. SHE REQUESTED I CALL HER SON TO LET HIM KNOW. TC JOHN CHRISTIANSON [phone] HAD TO LEAVE A MESSAGE TO CALL ME.
--- NOTE | 2020-09-13 16:30 | NUR ---
SPOKE WITH [facility], SHE IS THE REP FOR PT. CASE. SHE IS ATTEMPTING TO FIND OUT WHERE THE REFERRAL IS FOR THE [facility]. MET WITH PT. ADVISED HER THAT WE ARE STILL AWAITING INS AUTHORIZATION. PT. ASKED THAT I CALL HER SON, MEGHAN AND HAVE HIM CALL HER HER PHONE IS NOT WORKING. TC TO MEGHAN [phone]. ADVISED HIM OF THE INS. NETO AND TO CALL HIS MOTHER. GAVE HIM THE ROOM NUMBER, HOSPITAL NUMBER AND 2ND FLOOR NURSES' STATION NUMBER.
--- NOTE | 2020-09-14 10:06 | NUR ---
KRISS PUENTES AT [facility]. SHE IS AT DR. CORTÉS. SHE WILL CHECK ON THE INSURANCE WHEN SHE RETURNS BACK TO THE OFFICE. ADVISED MS. MOON WE HAVE NOT HEARD FROM THE INSURANCE AT THIS TIME.
[2020-09-14 10:35] LABS: BASOPHIL 0 % (0-2); EOSINOPHIL 1.9 % (0-7); HCT 21.5 % (37.0-47.0); HGB 7.4 g/dl (12.5-16.0); LYMPHOCYTE 83.3 % (15-48); MCHC 34.4 g/dL (32.0-36.0); MCV 84.3 fL (78.0-100.0); MONOCYTE 9.3 % (0-12); MPV 9.6 fL (6.0-9.5); NEUTROPHIL 5.5 % (41-80); NRBC 0; RBC 2.55 M/uL (4.20-5.40); RDW 13.8 % (11.5-14.0)
[2020-09-14 11:00] LABS: WBC 0.5 K/uL (4.0-10.5)
[2020-09-14 11:01] LABS: PLT 17 K/uL (150-400)
[2020-09-14 11:50] LABS: CREATININE 0.46 mg/dL (0.51-0.95); POTASSIUM 3.2 mmol/L (3.5-5.1)
--- NOTE | 2020-09-15 14:58 | NUR ---
TC FROM [facility] NEEDS UPDATED CLINICALS FOR INS. FAXED UPDATED CLINICALS TO [phone]. TC TO SON, LETICIA AND ADVISED THAT PT. COULD D/C THIS DATE. HE WILL BE TRANSPORTING HER TO THE FACILITY.
--- NOTE | 2020-09-15 16:12 | NUR ---
TC JOHN JARA, LAST IRONER AT [facility]. HE HAS NOT HEARD FROM THE INSURANCE COMPANY HE IS GOING TO CONTACT THE REP.
--- NOTE | 2020-09-15 16:22 | NUR ---
TC FROM [facility] WITH JUDSON. SHE ADVISED THAT SHE HAS JUST APPROVED PT FOR [facility]. AUTH # IS [id number]. TC FROM [facility] PT. CAN ADMIT TO [facility] THIS EVENING. REPORT NUMBER IS [phone] FAX NUMBER IS [phone] MERAZ HE WILL DICTATE THE D/C SUMMARY. ADVISED JOSEMANUEL, NURSE. ALSO ADVISED HER THAT SON IS 2 HOURS AWAY, BUT HE HAS BEEN ADVISED TO CORRUGATOR OPERATOR HIS MOTHER. ADVISED PT. OF D/C ADVISED HER SON, MEGHAN OF THE AUTHORIZATION. HE WILL BE ON HIS WAY TO GET HIS MOTHER. MEGHAN'S PHONE NUMBER IS [phone]. ADDRESS FOR [facility] IS [address] [place] [address]
[2020-09-15] MEDS ORDERED: NORCO 5-325 TA1 EACH PO (16:38)
[2020-09-15] MEDS ORDERED: INVANZ 1GM1 GM/VIAL IM/IV (16:38)
[2020-09-15] MEDS ORDERED: CLONAZEPAM0.5 MG PO (16:38)
[2020-09-15] MEDS ORDERED: NYSTATIN SUSP1 ML/ML PO (17:27)
== END 2020-09-15 19:30 | DRG 871 ==
LOC: FER 19:36 → FMS 23:09 → FTCU 23:09 → FICU 23:09 → FTCU 09-07 08:01 → FMS 09-11 22:27
PROVIDERS: Allergy & Immunology Allergy; Emergency Medicine Emergency Medical Services; Internal Medicine; Nurse Practitioner; Nurse Practitioner Family; ADMIT Internal Medicine
PROC: 3E033XZ Introduction of Vasopressor into Peripheral Vein, Percutaneous Approach (ICD-10-PCS; principal; 2020-09-05)
PROC: 30233R1 Transfusion of Nonautologous Platelets into Peripheral Vein, Percutaneous Approach (ICD-10-PCS; 2020-09-06)
PROC: 30233N1 Transfusion of Nonautologous Red Blood Cells into Peripheral Vein, Percutaneous Approach (ICD-10-PCS; 2020-09-06)
PROC: 30233N1 Transfusion of Nonautologous Red Blood Cells into Peripheral Vein, Percutaneous Approach (ICD-10-PCS; 2020-09-11)
DX: A41.9 Sepsis, unspecified organism (principal); R65.21 Severe sepsis with septic shock; K57.20 Diverticulitis of large intestine with perforation and abscess without bleeding; D61.818 Other pancytopenia; E87.2 Acidosis; E46 Unspecified protein-calorie malnutrition; N32.1 Vesicointestinal fistula; C92.00 Acute myeloblastic leukemia, not having achieved remission; N39.0 Urinary tract infection, site not specified; L89.322 Pressure ulcer of left buttock, stage 2; Z20.822 Contact with and (suspected) exposure to COVID-19; D46.9 Myelodysplastic syndrome, unspecified; F32.9 Major depressive disorder, single episode, unspecified; F41.9 Anxiety disorder, unspecified; R93.89 Abnormal findings on diagnostic imaging of other specified body structures; N28.89 Other specified disorders of kidney and ureter; M10.9 Gout, unspecified; Z88.2 Allergy status to sulfonamides; Z79.899 Other long term (current) drug therapy; Z95.828 Presence of other vascular implants and grafts; Z85.828 Personal history of other malignant neoplasm of skin
CPT/HCPCS: 36415; 36430; 71045; 73070; 73100; 76856; 80048; 80053; 80069; 81001; 83605; 83690; 83735; 84100; 84145; 84484; 85025; 86850; 86900; 86901; 86922; 87040; 87088; 93005; 97162; 97166; 97530-GP; 97535; C9113; J0692; J1335; J2185; J2405; J2543; J3475; J3480; J7040; J7120; P9016; P9035; Q9967; U0002

== ENCOUNTER 2020-09-21 17:59 | Emergency (ER) | payer MEDICARE ==
[~2020-09-21 17:59] MED LIST changes: +CLONAZEPAM0.5 MG PO; +DIFLUCAN150 MG PO; +INVANZ 1GM1 GM/VIAL IM/IV; +MEGACE40 MG PO; +NORCO 5-325 TA1 EACH PO; +NYSTATIN SUSP1 ML/ML PO
[2020-09-21 18:57] LABS: BASOPHIL 0 % (0-2); EOSINOPHIL 1.1 % (0-7); HCT 18.5 % (37.0-47.0); LYMPHOCYTE 80.9 % (15-48); MCV 84.9 fL (78.0-100.0); MONOCYTE 11.7 % (0-12); NEUTROPHIL 3.1 % (41-80); NRBC 0; RBC 2.18 M/uL (4.20-5.40)
[2020-09-21 19:01] LABS: HGB 6.1 g/dl (12.5-16.0); PLT 2 K/uL (150-400); WBC 0.9 K/uL (4.0-10.5)
[2020-09-21 19:26] LABS: ALBUMIN 1.7 g/dL (3.4-5.0); ALKALINE PHOSHATASE 80 U/L (46-116); ALT 16 U/L (14-59); AST 21 U/L (15-37); BUN 30 mg/dL (7-18); CHLORIDE 106 mmol/L (98-107); CO2 (BICARBONATE) 23 mmol/L (21-32); CREATININE 0.91 mg/dL (0.51-0.95); GLOBULIN (CALCULATION) 5.5 g/dL; GLUCOSE 104 mg/dL (74-106); LIPASE 50 U/L (73-393); POTASSIUM 3.3 mmol/L (3.5-5.1); TOTAL PROTEIN 7.2 g/dL (6.4-8.2)
[2020-09-21 19:27] LABS: C-REACTIVE PROTEIN > 18.00 mg/dL (<=0.90); LACTIC ACID 2.8 mmol/L (0.4-1.9)
[2020-09-21 22:33] LABS: BILIRUBIN 1+ mg/dL (NEGATIVE); BLOOD 3+ Ery/uL (NEGATIVE); CLARITY CLOUDY (CLEAR); COLOR RED (YELLOW); GLUCOSE (U) NORMAL (NORMAL); LEUKOCYTES TRACE Leu/uL (NEGATIVE); NITRITE POSITIVE (NEGATIVE); PROTEIN 3+ mg/dL (NEGATIVE); pH 6.5 (5.0-9.0)
[2020-09-21 22:45] LABS: URINARY RBC TNTC
[2020-09-21 22:46] LABS: BACTERIA TRACE; MUCOUS TRACE; SQUAMOUS EPITHELIAL CELLS RARE
== END 2020-09-22 07:12 | disposition other institution (70) ==
LOC: FER 17:59
PROVIDERS: Internal Medicine
DX: I62.00 Nontraumatic subdural hemorrhage, unspecified (principal); D61.818 Other pancytopenia; E87.6 Hypokalemia; Z88.2 Allergy status to sulfonamides; Z86.19 Personal history of other infectious and parasitic diseases
CPT/HCPCS: 36415; 70450; 71045; 80053; 81001; 83605; 83690; 84145; 84443; 84484; 85025; 86140; 87040; 93005; 96365; J2543; J7030